=== PATIENT | female | born 1995 | race Caucasian/White ===

== ENCOUNTER 2019-05-16 23:16 | Emergency (ER) | payer BC, OTHER ==
--- NOTE | 2019-05-17 01:11 | ER Document Report ---
ED Medical Screen (RME) - General Chief Complaint: Shortness Of Breath Stated Complaint: DIFFICULTY BREATHING Time Seen by Provider: 05/17/19 01:09 Mode of Arrival: Wheelchair Information source: Patient Notes: 24-year-old female presented to ED for complaint of shortness of breath, difficulty breathing, feeling a rash to the head, near syncope and nausea. She states they were waiting for supper when all of the symptoms happen. She states that she does have a history of anxiety and panic attacks. She does not have any heart history. Mother does have a history of SVT. Patient is alert oriented respirations regular and unlabored speaking in full sentences. Her pulse is now at 92 with 100% saturation. She is allergic to penicillin all months these environments. Patient states she took a Benadryl earlier took a nap and now she feels much better. I have greeted and performed a rapid initial assessment of this patient. A comprehensive ED assessment and evaluation of the patient, analysis of test results and completion of medical decision making process will be conducted by an additional ED providers. Dictation of this chart was performed using voice recognition software; therefore, there may be some unintended grammatical errors. TRAVEL OUTSIDE OF THE [place] IN LAST 30 DAYS: No Physical Exam - Vital signs Vitals: Temp Pulse Resp BP Pulse Ox 97.9 F 122 H 20 133/85 H 100 05/16/19 23:24 05/16/19 23:24 05/16/19 23:24 05/16/19 23:24 05/16/19 23:24 Course - Vital Signs Vital signs: Temp Pulse Resp BP Pulse Ox 97.9 F 122 H 20 133/85 H 100 05/16/19 23:24 05/16/19 23:24 05/16/19 23:24 05/16/19 23:24 05/16/19 23:24
[2019-05-17 01:25] LABS: APPEARANCE,URINE CLEAR; BILIRUBIN,URINE NEGATIVE (NEGATIVE); COLOR,URINE COLORLESS; GLUCOSE, URINE NEGATIVE (NEGATIVE); KETONES,URINE NEGATIVE (NEGATIVE); LEUKOCYTE ESTERASE,URINE NEGATIVE (NEGATIVE); NITRITE,URINE NEGATIVE (NEGATIVE); PROTEIN,URINE NEGATIVE (NEGATIVE); URINE SPECIFIC GRAVITY 1.001; UROBILINOGEN,URINE NEGATIVE mg/dL (<2.0)
[2019-05-17 02:13] LABS: ABSOLUTE BASOPHILS # (AUTO) 0.1 10^3/uL (0.0-0.2); ABSOLUTE LYMPHOCYTES (AUTO) 0.9 10^3/uL (0.5-4.7); ABSOLUTE MONOCYTES (AUTO) 0.4 10^3/uL (0.1-1.4); ABSOLUTE NEUT (AUTO) 7.7 10^3/uL (1.7-8.2); BASOPHILS % (AUTO) 0.6 % (0-2); EOSINOPHILS % (AUTO) 0.3 % (0-6); HEMATOCRIT 40.1 % (36.0-47.0); HEMOGLOBIN 13.6 g/dL (12.0-15.5); LYMPHOCYTES % (AUTO) 10.2 % (13-45); MEAN CORPUSCULAR HEMOGLOBIN 29.5 pg (27.0-33.4); MEAN CORPUSCULAR VOLUME 87 fl (80-97); MONOCYTES % (AUTO) 4.5 % (3-13); PLATELET COUNT 273 10^3/uL (150-450); RED BLOOD COUNT 4.62 10^6/uL (3.72-5.28); RED CELL DISTRIBUTION WIDTH 11.8 % (11.5-14.0); SEGMENTED NEUTROPHILS % (AUTO) 84.4 % (42-78); TOTAL CELLS COUNTED % (AUTO) 100 %; WHITE BLOOD COUNT 9.2 10^3/uL (4.0-10.5)
--- NOTE | 2019-05-17 02:24 | RADIOLOGY REPORT (SQ) ---
XR CHEST 2 VIEWS EXAM DATE: 05/17/2019 1:11 AM CDT HISTORY: Shortness of breath. COMPARISON: None. FINDINGS: The heart size is within normal limits. No consolidation, pleural effusion, or pneumothorax is seen. The bony thorax is intact. IMPRESSION: No evidence of acute cardiopulmonary disease.
[2019-05-17 02:32] LABS: ALBUMIN 4.8 g/dL (3.5-5.0); ALKALINE PHOSPHATASE 57 U/L (38-126); ANION GAP 10 (5-19); ASPARTATE AMINO TRANSFERASE 19 U/L (14-36); BILIRUBIN,DIRECT 0.3 mg/dL (0.0-0.4); BILIRUBIN,TOTAL 0.5 mg/dL (0.2-1.3); BLOOD UREA NITROGEN 9 mg/dL (7-20); CARBON DIOXIDE 25 mmol/L (22-30); CHLORIDE 106 mmol/L (98-107); GLUCOSE 106 mg/dL (75-110); POTASSIUM 3.5 mmol/L (3.6-5.0); TOTAL PROTEIN 8.1 g/dL (6.3-8.2)
[2019-05-17 04:13] VITALS: BP 123/68
--- NOTE | 2019-05-17 04:36 | ER Document Report ---
ED General - General Chief Complaint: Shortness Of Breath Stated Complaint: DIFFICULTY BREATHING Time Seen by Provider: 05/17/19 01:09 Primary Care Provider: JACKY PENA MD [ACTIVE STAFF] - Follow up as needed Mode of Arrival: Wheelchair Information source: Patient TRAVEL OUTSIDE OF THE [place] IN LAST 30 DAYS: No - HPI Notes: 24-year-old female presented to ED for complaint of shortness of breath, difficulty breathing, feeling a warm fisher to the head, near syncope and nausea. She states they were waiting for supper when all of the symptoms happen. She states that she does have a history of anxiety and panic attacks. She does not have any heart history. Mother does have a history of SVT. Patient is alert oriented respirations regular and unlabored speaking in full sentences. Her pulse is now at 92 with 100% saturation. Patient states she took a Benadryl earlier took a nap and now she feels much better. Patient reports history of other previous similar episodes that occurred at rest. Patient reports she exercises without any symptoms or chest pain or palpitation, stating that earlier in the week she biked 6-1/2 miles in the heat without any difficulty. Patient denies any current chest pain, but does report some previous tightness. No fever or chills or constipation or diarrhea or dysuria. No medication changes. Patient reports with these intermittent episodes she feels she is unable to take a deep breath due to her symptoms. She reports associated dry mouth. Past Medical History - General Information source: Patient - Social History Smoking Status: Never Smoker Frequency of alcohol use: None Drug Abuse: None Lives with: Family Family History: Other - Mother with history of SVT status post ablation. Review of Systems - Review of Systems -: Yes All other systems reviewed and negative Physical Exam - Vital signs Vitals: Temp Pulse Resp BP Pulse Ox 97.9 F 122 H 20 133/85 H 100 05/16/19 23:24 05/16/19 23:24 05/16/19 23:24 05/16/19 23:24 05/16/19 23:24 - Notes Notes: PHYSICAL EXAMINATION: GENERAL: Well-appearing, well-nourished and in no acute distress. Somewhat anxious. HEAD: Atraumatic, normocephalic. EYES: Pupils equal round and reactive to light, extraocular movements intact, conjunctiva are normal. ENT: Nares patent, oropharynx clear without exudates. Moist mucous membranes. NECK: Normal range of motion, supple without lymphadenopathy. No thyromegaly. LUNGS: Breath sounds clear to auscultation bilaterally and equal. No wheezes rales or rhonchi. HEART: Regular rhythm without murmurs. Heart rate 105 on my exam. ABDOMEN: Soft, nontender, nondistended abdomen. No guarding, no rebound. No masses appreciated. Female : deferred Musculoskeletal: Normal range of motion, no pitting or edema. No cyanosis. NEUROLOGICAL: Cranial nerves grossly intact. Normal speech, normal gait. Normal sensory, motor exams PSYCH: Anxious. SKIN: Warm, Dry, normal turgor, no rashes or lesions noted. Course - Re-evaluation Re-evalutation: 05/17/19 05:04 Patient was reassured and was given Xanax. There is no arrhythmia noted on EKG. Electrolytes were normal and there was no cardiomegaly on chest x-ray. No clinical suggestion for pulmonary embolus or pneumonia or pneumothorax, given the recurrent intermittent symptoms at rest. Findings fit for anxiety etiology. If symptoms persist, she was instructed to get a stethoscope and to do cardiac monitoring and to follow-up with cardiology for evaluation. If anxiety persists and she needs further evaluation and possibly to be started on a long-acting anxiety medication. - Vital Signs Vital signs: Temp Pulse Resp BP Pulse Ox 98.1 F 93 19 123/68 100 05/17/19 04:11 05/17/19 04:11 05/17/19 04:11 05/17/19 04:11 05/17/19 04:11 - Laboratory Result Diagrams: 05/17/19 01:49 05/17/19 01:49 Laboratory results interpreted by me: 05/17/19 05/17/19 01:49 01:49 Seg Neutrophils % 84.4 H Lymphocytes % 10.2 L Potassium 3.5 L Discharge - Discharge Clinical Impression: Palpitations, Anxiety Condition: Stable Disposition: HOME, SELF-CARE Instructions: Anxiety ([facility]), Palpitations (Irregular or Rapid Heartrate) ([facility]) Additional Instructions: Do not take Xanax and drive or operate heavy machinery. If symptoms persist, then you need to follow-up with a fountain brush assembler for Holter monitoring and an echocardiogram. If anxiety persists, follow-up with local practitioner to discuss possibly starting a medication such as Paxil, Lexapro, Effexor, Zoloft that helps chronic anxiety symptoms. Prescriptions: Alprazolam [Xanax 0.5 mg Tablet] 0.5 mg PO Q12HP PRN #14 tab PRN Reason: Referrals: JACKY PENA MD [ACTIVE STAFF] - Follow up as needed
[2019-05-17] MEDS ORDERED: ALPRAZOLAM 0.5 MG TABLET PO ONE (04:47)
--- NOTE | 2019-05-17 14:33 | EKG REPORT ---
SEVERITY:- OTHERWISE NORMAL ECG - SINUS TACHYCARDIA : Confirmed by: Estrella Diaz 17-May-2019 14:33:04
== END 2019-05-17 05:47 | disposition home or self-care (01) ==
LOC: ER 23:16
DX: R00.2 Palpitations (principal); F41.9 Anxiety disorder, unspecified; R06.02 Shortness of breath; R42 Dizziness and giddiness; R11.0 Nausea; R68.2 Dry mouth, unspecified
CPT/HCPCS: 36415; 71046; 80053; 81001; 84484; 84703; 85025; 93005; 93010; 99285